=== PATIENT | male | born 1930 | race African-American/Black ===

== ENCOUNTER 2017-05-06 23:45 | Inpatient (IN) ==
[2017-05-07 01:43] LABS: Basophils % 0.2 % (0.0-0.8); Eosinophils # 0.1 10*3/uL (0.0-0.87); Eosinophils % 1.6 % (0.00-10.9); Hematocrit 37.2 VOL% (42.0-52.0); Hemoglobin 12.1 GM/DL (14.0-18.0); Immature Granulocytes % 0.5 %; Immature Granulocytes Absolute 0.03 #; Lymphocytes # 1.3 10*3/uL (1.4-4.0); Mean Corpuscular HGB Conc 32.5 GM/DL (32-36); Mean Corpuscular Hemoglobin 30 PG (27-34); Mean Corpuscular Volume 92.3 FL (87-102); Mean Platelet Volume 11.1 FL (9.6-12.0); Monocytes # 0.6 10*3/uL (0.11-0.8); Monocytes % 10.9 % (1.7-12.7); Neutrophils # 3.6 10*3/uL (1.4-7.4); Neutrophils % 63.8 % (38.7-73.9); Platelet Count 147 T/CUMM (130-400); Red Blood Count 4.03 MC/CUMM (3.8-5.5); Red Cell Distribution Width 13.5 % (9.3-17.3); White Blood Count 5.7 T/CUMM (4-12)
[2017-05-07 01:50] LABS: INR 1.1; PT Patient Result 11.2 SECS
[2017-05-07 02:14] LABS: Alanine Aminotransferase 41 U/L (16-61); Albumin 2.8 G/DL (3.4-5.0); Alkaline Phosphatase 87 U/L (45-117); Aspartate Amino Transferase 28 U/L (0-37); Bilirubin,Total < 0.39 MG/DL (0.2-1.0); Blood Urea Nitrogen 38 MG/DL (7-18); Calcium 8.4 MG/DL (8.5-10.1); Glucose 108 MG/DL (74-106); Osmolality,Calculated 284.7 MOS/KG (273-304); Potassium 4.1 MMOL/L (3.5-5.1); Sodium 138 MMOL/L (136-145); Troponin I Only 0.026 NG/ML (0.00-0.045)
[2017-05-07] MEDS ORDERED: FUROSEMIDE 40 MG/4 ML VIAL IV STA (03:16)
[2017-05-07] MEDS ORDERED: FUROSEMIDE 40 MG/4 ML VIAL ONE (03:32)
[2017-05-07] MEDS ORDERED: ONDANSETRON 4 MG/2 ML VIAL IV PRN (07:02)
[2017-05-07] MEDS ORDERED: DEXTROSE 50% 25 GM/50 ML VIAL IV PRN (07:02)
[2017-05-07] MEDS ORDERED: MORPHINE 2 MG/1 ML SYRINGE IV PRN (07:02)
[2017-05-07] MEDS ORDERED: GLUCAGON 1 MG VIAL IM PRN (07:02)
[2017-05-07 08:09] LABS: Magnesium 2.2 MG/DL (1.8-2.4); Risk Ratio 2.62; VLDL CHOLESTEROL 19.6 MG/DL
[2017-05-07] MEDS: CARVEDILOL 25 MG TABLET PO SCH ×2 (08:22→21:00)
[2017-05-07] MEDS: MULTIVITAMIN (CENTRUM) TABLET PO SCH (08:22)
[2017-05-07] MEDS: DOCUSATE SODIUM 100 MG CAPSULE PO SCH ×2 (08:22→21:01)
[2017-05-07] MEDS: ASPIRIN EC 81 MG TABLET PO SCH (08:22)
[2017-05-07] MEDS: FERROUS SULFATE 325 MG TABLET PO SCH (08:22)
[2017-05-07] MEDS: VALSARTAN 80 MG TABLET PO SCH (08:22)
[2017-05-07] MEDS: MAGNESIUM OXIDE 400 MG TABLET PO SCH (08:23)
[2017-05-07] MEDS: CALCIUM (CARBONATE)/VITAMIN D 500 MG-200 UNIT TABLET PO SCH ×2 (08:23→21:00)
[2017-05-07] MEDS: CYANOCOBALAMIN 500 MCG TABLET PO SCH (08:23)
[2017-05-07] MEDS: PANTOPRAZOLE 40 MG TABLET PO SCH (08:23)
[2017-05-07] MEDS: FUROSEMIDE 40 MG/4 ML VIAL IV SCH ×2 (08:26→16:22)
[2017-05-07] MEDS: SPIRONOLACTONE 25 MG TABLET PO SCH (11:27)
[2017-05-07] MEDS: DIGOXIN 0.25 MG TABLET PO SCH (12:47)
[2017-05-07] MEDS: ALBUTEROL/IPRATROPIUM 3 ML NEB RESP TX SCH ×2 (14:08→20:07)
[2017-05-07] MEDS: RIVAROXABAN 20 MG TABLET PO SCH (16:21)
[2017-05-07] MEDS: BACLOFEN 10 MG TABLET PO SCH ×2 (16:21→21:00)
[2017-05-07] MEDS: INSULIN GLARGINE 100 UNIT/ML SUBCUT SCH (17:41)
[2017-05-07] MEDS: DONEPEZIL 10 MG TABLET PO SCH (21:01)
[2017-05-08] MEDS: ALBUTEROL/IPRATROPIUM 3 ML NEB RESP TX SCH ×4 (00:51→21:13)
[2017-05-08 06:27] LABS: Calcium 8.8 MG/DL (8.5-10.1); Osmolality,Calculated 278.7 MOS/KG (273-304)
[2017-05-08] MEDS: FUROSEMIDE 40 MG/4 ML VIAL IV SCH ×2 (10:03→16:35)
[2017-05-08] MEDS: MULTIVITAMIN (CENTRUM) TABLET PO SCH (10:05)
[2017-05-08] MEDS: VALSARTAN 80 MG TABLET PO SCH (10:05)
[2017-05-08] MEDS: CALCIUM (CARBONATE)/VITAMIN D 500 MG-200 UNIT TABLET PO SCH ×2 (10:05→20:26)
[2017-05-08] MEDS: FERROUS SULFATE 325 MG TABLET PO SCH (10:06)
[2017-05-08] MEDS: CYANOCOBALAMIN 500 MCG TABLET PO SCH (10:06)
[2017-05-08] MEDS: DOCUSATE SODIUM 100 MG CAPSULE PO SCH ×2 (10:06→20:26)
[2017-05-08] MEDS: BACLOFEN 10 MG TABLET PO SCH ×3 (10:07→20:26)
[2017-05-08] MEDS: MAGNESIUM OXIDE 400 MG TABLET PO SCH (10:07)
[2017-05-08] MEDS: ASPIRIN EC 81 MG TABLET PO SCH (10:08)
[2017-05-08] MEDS: CARVEDILOL 25 MG TABLET PO SCH ×2 (10:08→20:26)
[2017-05-08] MEDS: PANTOPRAZOLE 40 MG TABLET PO SCH (10:08)
[2017-05-08] MEDS: SPIRONOLACTONE 25 MG TABLET PO SCH (10:09)
[2017-05-08] MEDS: DIGOXIN 0.25 MG TABLET PO SCH (14:27)
[2017-05-08] MEDS: RIVAROXABAN 20 MG TABLET PO SCH (16:35)
[2017-05-08] MEDS: INSULIN GLARGINE 100 UNIT/ML SUBCUT SCH (17:46)
[2017-05-08] MEDS: DONEPEZIL 10 MG TABLET PO SCH (20:26)
[2017-05-09] MEDS: ALBUTEROL/IPRATROPIUM 3 ML NEB RESP TX SCH ×4 (01:54→19:50)
[2017-05-09] MEDS: ASPIRIN EC 81 MG TABLET PO SCH (09:13)
[2017-05-09] MEDS: MULTIVITAMIN (CENTRUM) TABLET PO SCH (09:13)
[2017-05-09] MEDS: DOCUSATE SODIUM 100 MG CAPSULE PO SCH ×2 (09:13→21:30)
[2017-05-09] MEDS: SPIRONOLACTONE 25 MG TABLET PO SCH (09:13)
[2017-05-09] MEDS: CYANOCOBALAMIN 500 MCG TABLET PO SCH (09:13)
[2017-05-09] MEDS: BACLOFEN 10 MG TABLET PO SCH ×3 (09:13→21:30)
[2017-05-09] MEDS: MAGNESIUM OXIDE 400 MG TABLET PO SCH (09:13)
[2017-05-09] MEDS: CALCIUM (CARBONATE)/VITAMIN D 500 MG-200 UNIT TABLET PO SCH ×2 (09:14→21:30)
[2017-05-09] MEDS: PANTOPRAZOLE 40 MG TABLET PO SCH (09:14)
[2017-05-09] MEDS: VALSARTAN 80 MG TABLET PO SCH (09:14)
[2017-05-09] MEDS: FUROSEMIDE 40 MG/4 ML VIAL IV SCH (09:14)
[2017-05-09] MEDS: CARVEDILOL 25 MG TABLET PO SCH ×2 (09:14→21:30)
[2017-05-09] MEDS: FERROUS SULFATE 325 MG TABLET PO SCH (09:14)
[2017-05-09 11:35] LABS: Calcium 8.7 MG/DL (8.5-10.1); Magnesium 2.3 MG/DL (1.8-2.4); Osmolality,Calculated 277.1 MOS/KG (273-304); Potassium 4.9 MMOL/L (3.5-5.1)
[2017-05-09] MEDS: DIGOXIN 0.25 MG TABLET PO SCH (13:04)
[2017-05-09] MEDS: RIVAROXABAN 20 MG TABLET PO SCH (15:40)
[2017-05-09] MEDS: FUROSEMIDE 40 MG TABLET PO SCH (15:41)
[2017-05-09] MEDS: INSULIN GLARGINE 100 UNIT/ML SUBCUT SCH (17:07)
[2017-05-09] MEDS: DONEPEZIL 10 MG TABLET PO SCH (21:30)
[2017-05-10] MEDS: ALBUTEROL/IPRATROPIUM 3 ML NEB RESP TX SCH ×4 (01:00→19:49)
[2017-05-10 04:57] LABS: Basophils % 0.2 % (0.0-0.8); Eosinophils # 0.1 10*3/uL (0.0-0.87); Eosinophils % 0.9 % (0.00-10.9); Hemoglobin 11.6 GM/DL (14.0-18.0); Immature Granulocytes % 0.8 %; Immature Granulocytes Absolute 0.05 #; Mean Corpuscular HGB Conc 32.2 GM/DL (32-36); Mean Corpuscular Hemoglobin 30 PG (27-34); Mean Corpuscular Volume 91.6 FL (87-102); Mean Platelet Volume 11.4 FL (9.6-12.0); Monocytes # 0.8 10*3/uL (0.11-0.8); Monocytes % 11.8 % (1.7-12.7); Neutrophils # 4.6 10*3/uL (1.4-7.4); Neutrophils % 70.3 % (38.7-73.9); Platelet Count 198 T/CUMM (130-400); Red Blood Count 3.93 MC/CUMM (3.8-5.5); Red Cell Distribution Width 13.5 % (9.3-17.3); White Blood Count 6.5 T/CUMM (4-12)
[2017-05-10 05:41] LABS: Calcium 8.6 MG/DL (8.5-10.1); Osmolality,Calculated 277.8 MOS/KG (273-304); Potassium 4.4 MMOL/L (3.5-5.1)
[2017-05-10] MEDS: FERROUS SULFATE 325 MG TABLET PO SCH (08:11)
[2017-05-10] MEDS: CALCIUM (CARBONATE)/VITAMIN D 500 MG-200 UNIT TABLET PO SCH ×2 (08:12→21:28)
[2017-05-10] MEDS: VALSARTAN 80 MG TABLET PO SCH (08:12)
[2017-05-10] MEDS: PANTOPRAZOLE 40 MG TABLET PO SCH (08:12)
[2017-05-10] MEDS: DOCUSATE SODIUM 100 MG CAPSULE PO SCH ×2 (08:12→21:28)
[2017-05-10] MEDS: CYANOCOBALAMIN 500 MCG TABLET PO SCH (08:13)
[2017-05-10] MEDS: SPIRONOLACTONE 25 MG TABLET PO SCH (08:13)
[2017-05-10] MEDS: CARVEDILOL 25 MG TABLET PO SCH ×2 (08:13→21:28)
[2017-05-10] MEDS: ASPIRIN EC 81 MG TABLET PO SCH (08:13)
[2017-05-10] MEDS: BACLOFEN 10 MG TABLET PO SCH ×3 (08:13→21:28)
[2017-05-10] MEDS: MAGNESIUM OXIDE 400 MG TABLET PO SCH (08:32)
[2017-05-10] MEDS: FUROSEMIDE 40 MG TABLET PO SCH ×2 (08:32→15:40)
[2017-05-10] MEDS: MULTIVITAMIN (CENTRUM) TABLET PO SCH (08:32)
[2017-05-10] MEDS: DIGOXIN 0.25 MG TABLET PO SCH (13:28)
[2017-05-10] MEDS: RIVAROXABAN 20 MG TABLET PO SCH (15:40)
[2017-05-10] MEDS: INSULIN GLARGINE 100 UNIT/ML SUBCUT SCH (17:02)
[2017-05-10] MEDS: DONEPEZIL 10 MG TABLET PO SCH (21:27)
[2017-05-11] MEDS: ALBUTEROL/IPRATROPIUM 3 ML NEB RESP TX SCH ×4 (00:17→20:02)
[2017-05-11] MEDS ORDERED: INSULIN GLARGINE 100 UNIT/ML SUBCUT SCH (09:32)
[2017-05-11] MEDS: CYANOCOBALAMIN 500 MCG TABLET PO SCH (09:37)
[2017-05-11] MEDS: FERROUS SULFATE 325 MG TABLET PO SCH (09:37)
[2017-05-11] MEDS: VALSARTAN 80 MG TABLET PO SCH (09:37)
[2017-05-11] MEDS: BACLOFEN 10 MG TABLET PO SCH ×3 (09:38→21:27)
[2017-05-11] MEDS: SPIRONOLACTONE 25 MG TABLET PO SCH (09:39)
[2017-05-11] MEDS: MAGNESIUM OXIDE 400 MG TABLET PO SCH (09:39)
[2017-05-11] MEDS: FUROSEMIDE 40 MG TABLET PO SCH ×2 (09:39→15:45)
[2017-05-11] MEDS: CALCIUM (CARBONATE)/VITAMIN D 500 MG-200 UNIT TABLET PO SCH ×2 (09:39→21:30)
[2017-05-11] MEDS: PANTOPRAZOLE 40 MG TABLET PO SCH (09:40)
[2017-05-11] MEDS: CARVEDILOL 25 MG TABLET PO SCH ×2 (09:40→21:30)
[2017-05-11] MEDS: MULTIVITAMIN (CENTRUM) TABLET PO SCH (09:40)
[2017-05-11] MEDS: ASPIRIN EC 81 MG TABLET PO SCH (09:41)
[2017-05-11] MEDS: DOCUSATE SODIUM 100 MG CAPSULE PO SCH ×2 (09:41→21:27)
[2017-05-11] MEDS: DIGOXIN 0.25 MG TABLET PO SCH (13:43)
[2017-05-11] MEDS: DOXYCYCLINE HYCLATE 100 MG CAPSULE PO SCH ×2 (14:08→21:27)
[2017-05-11 15:42] LABS: Apearance,Urine CLEAR (Clear); Bacteria,Urine Occasional /HPF (Few); Bilirubin,Urine Negative (Negative); Blood, Urine Small mg/dL (Negative); Glucose,Urine (UA) 50 mg/dL (Negative); Hyaline Casts,Urine 6 /LPF (0-3); Ketones,Urine Negative (Negative); Mucus,Urine Occasional /LPF (Occasional); Nitrite,Urine Negative (Negative); Protein,Urine Negative; RBC,Urine 2 /HPF (0-4); Urine Color Yellow (Yellow); Urine Urobilinogen < 2.0 EU/DL (0.2-1.0); WBC,Urine 4 /HPF (0-6)
[2017-05-11] MEDS: RIVAROXABAN 20 MG TABLET PO SCH (16:27)
[2017-05-11] MEDS: DONEPEZIL 10 MG TABLET PO SCH (21:27)
[2017-05-12] MEDS: ALBUTEROL/IPRATROPIUM 3 ML NEB RESP TX SCH ×2 (00:10→07:04)
[2017-05-12] MEDS: MAGNESIUM OXIDE 400 MG TABLET PO SCH (09:12)
[2017-05-12] MEDS: BACLOFEN 10 MG TABLET PO SCH (09:12)
[2017-05-12] MEDS: MULTIVITAMIN (CENTRUM) TABLET PO SCH (09:13)
[2017-05-12] MEDS: DOXYCYCLINE HYCLATE 100 MG CAPSULE PO SCH (09:13)
[2017-05-12] MEDS: SPIRONOLACTONE 25 MG TABLET PO SCH (09:13)
[2017-05-12] MEDS: DOCUSATE SODIUM 100 MG CAPSULE PO SCH (09:13)
[2017-05-12] MEDS: ASPIRIN EC 81 MG TABLET PO SCH (09:14)
[2017-05-12] MEDS: FERROUS SULFATE 325 MG TABLET PO SCH (09:14)
[2017-05-12] MEDS: CALCIUM (CARBONATE)/VITAMIN D 500 MG-200 UNIT TABLET PO SCH (09:14)
[2017-05-12] MEDS: CARVEDILOL 25 MG TABLET PO SCH (09:14)
[2017-05-12] MEDS: VALSARTAN 80 MG TABLET PO SCH (09:15)
[2017-05-12] MEDS: CYANOCOBALAMIN 500 MCG TABLET PO SCH (09:15)
[2017-05-12] MEDS: FUROSEMIDE 40 MG TABLET PO SCH (09:16)
[2017-05-12] MEDS: PANTOPRAZOLE 40 MG TABLET PO SCH (09:16)
[2017-05-12] MEDS ORDERED: CIPROFLOXACIN 500 MG TABLET PO SCH (09:30)
[2017-05-12 11:57] VITALS: BP 108/56
== END 2017-05-12 13:29 | disposition home health service (06) | DRG 190 ==
LOC: N.ED 23:45 → SUATTDRO 05-07 05:00 → N.EDINP 05-07 05:00 → N.TELEN 05-07 05:32
PROVIDERS: ATTEND Internal Medicine

== ENCOUNTER 2017-10-11 14:16 | Inpatient (IN) ==
[2017-10-11] MEDS ORDERED: guaiFENesin/DM ER 600-30 MG TABLET PO PRN (14:36)
[2017-10-11] MEDS ORDERED: ZALEPLON 5 MG CAPSULE PO PRN (14:36)
[2017-10-11] MEDS ORDERED: DOCUSATE SODIUM 100 MG CAPSULE PO PRN (14:36)
[2017-10-11] MEDS ORDERED: DEXTROSE 50% 25 GM/50 ML VIAL IV PRN (14:36)
[2017-10-11] MEDS ORDERED: GLUCAGON 1 MG VIAL IM PRN (14:36)
[2017-10-11] MEDS ORDERED: ACETAMINOPHEN 325 MG TABLET PO PRN (14:36)
[2017-10-11] MEDS ORDERED: MAGNESIUM SULF RIDER 2 GM in PREMIX 1 EACH IV PRN (14:36)
[2017-10-11] MEDS ORDERED: POTASSIUM CHLORIDE RIDER 10 MEQ in PREMIX 1 EACH IV PRN (14:36)
[2017-10-11] MEDS ORDERED: BISACODYL 5 MG TABLET PO PRN (14:36)
[2017-10-11] MEDS ORDERED: MAGNESIUM SULF RIDER 4 GM in PREMIX 1 EACH IV PRN (14:36)
[2017-10-11] MEDS ORDERED: ONDANSETRON 4 MG/2 ML VIAL IV PRN (14:36)
[2017-10-11] MEDS ORDERED: DIGOXIN 0.125 MG TABLET PO SCH (15:30)
[2017-10-11 17:04] LABS: Basophils % 0.8 % (0.0-0.8); Eosinophils # 0.2 10*3/uL (0.0-0.87); Eosinophils % 3.4 % (0.00-10.9); Hematocrit 39.4 VOL% (42.0-52.0); Hemoglobin 12.4 GM/DL (14.0-18.0); Immature Granulocytes % 0.4 %; Immature Granulocytes Absolute 0.02 #; Lymphocytes # 1.2 10*3/uL (1.4-4.0); Lymphocytes % 23.6 % (21.2-54.2); Mean Corpuscular HGB Conc 31.5 GM/DL (32-36); Mean Corpuscular Hemoglobin 30 PG (27-34); Mean Corpuscular Volume 95.2 FL (87-102); Mean Platelet Volume 11.3 FL (9.6-12.0); Monocytes # 0.5 10*3/uL (0.11-0.8); Monocytes % 10.4 % (1.7-12.7); Neutrophils # 3.1 10*3/uL (1.4-7.4); Neutrophils % 61.4 % (38.7-73.9); Platelet Count 156 T/CUMM (130-400); Red Blood Count 4.14 MC/CUMM (3.8-5.5); Red Cell Distribution Width 13.2 % (9.3-17.3)
[2017-10-11] MEDS: INSULIN REGULAR 100 UNIT/ML SUBCUT SCH ×2 (17:06→21:19)
[2017-10-11 17:21] LABS: Calcium 8.9 MG/DL (8.5-10.1); Osmolality,Calculated 280.8 MOS/KG (273-304); Potassium 4.4 MMOL/L (3.5-5.1)
[2017-10-11 17:35] LABS: Thyroid Stimulating Hormone 2.68 uIU/ml (0.358-3.74)
[2017-10-11] MEDS: ASPIRIN EC 81 MG TABLET PO SCH (20:06)
[2017-10-11] MEDS: FERROUS SULFATE 325 MG TABLET PO SCH (20:07)
[2017-10-11] MEDS: CYANOCOBALAMIN 500 MCG TABLET PO SCH (20:08)
[2017-10-11] MEDS: FUROSEMIDE 40 MG/4 ML VIAL IV SCH ×2 (20:37→21:20)
[2017-10-11] MEDS ORDERED: RIVAROXABAN 20 MG TABLET PO ONE (21:00)
[2017-10-11] MEDS: DONEPEZIL 10 MG TABLET PO SCH (21:20)
[2017-10-11] MEDS: CARVEDILOL 25 MG TABLET PO SCH (21:20)
[2017-10-11] MEDS: CALCIUM (CARBONATE)/VITAMIN D 500 MG-200 UNIT TABLET PO SCH (21:20)
[2017-10-11] MEDS: SPIRONOLACTONE 25 MG TABLET PO SCH (21:20)
[2017-10-12 04:57] LABS: Basophils % 0.2 % (0.0-0.8); Eosinophils # 0.1 10*3/uL (0.0-0.87); Eosinophils % 3.1 % (0.00-10.9); Hematocrit 38.1 VOL% (42.0-52.0); Hemoglobin 12.6 GM/DL (14.0-18.0); Immature Granulocytes % 0.2 %; Immature Granulocytes Absolute 0.01 #; Lymphocytes # 1.2 10*3/uL (1.4-4.0); Lymphocytes % 25.8 % (21.2-54.2); Mean Corpuscular HGB Conc 33.1 GM/DL (32-36); Mean Corpuscular Hemoglobin 30 PG (27-34); Mean Platelet Volume 11.8 FL (9.6-12.0); Monocytes # 0.5 10*3/uL (0.11-0.8); Monocytes % 11.6 % (1.7-12.7); Neutrophils # 2.7 10*3/uL (1.4-7.4); Neutrophils % 59.1 % (38.7-73.9); Platelet Count 168 T/CUMM (130-400); Red Blood Count 4.14 MC/CUMM (3.8-5.5); Red Cell Distribution Width 13.2 % (9.3-17.3); White Blood Count 4.6 T/CUMM (4-12)
[2017-10-12 05:18] LABS: Calcium 8.6 MG/DL (8.5-10.1); Osmolality,Calculated 285.4 MOS/KG (273-304)
[2017-10-12] MEDS: INSULIN REGULAR 100 UNIT/ML SUBCUT SCH ×4 (08:43→21:31)
[2017-10-12] MEDS: CYANOCOBALAMIN 500 MCG TABLET PO SCH (08:44)
[2017-10-12] MEDS: MULTIVITAMIN (CENTRUM) TABLET PO SCH (08:44)
[2017-10-12] MEDS: SPIRONOLACTONE 25 MG TABLET PO SCH (08:44)
[2017-10-12] MEDS: ASPIRIN EC 81 MG TABLET PO SCH (08:44)
[2017-10-12] MEDS: FERROUS SULFATE 325 MG TABLET PO SCH (08:44)
[2017-10-12] MEDS: CALCIUM (CARBONATE)/VITAMIN D 500 MG-200 UNIT TABLET PO SCH ×2 (08:44→21:25)
[2017-10-12] MEDS: VALSARTAN 80 MG TABLET PO SCH (08:44)
[2017-10-12] MEDS: MAGNESIUM OXIDE 400 MG TABLET PO SCH (08:45)
[2017-10-12] MEDS: PANTOPRAZOLE 40 MG TABLET PO SCH (08:45)
[2017-10-12] MEDS: DIGOXIN 0.125 MG TABLET PO SCH (08:45)
[2017-10-12] MEDS: FUROSEMIDE 40 MG/4 ML VIAL IV SCH ×2 (08:45→21:25)
[2017-10-12] MEDS: CARVEDILOL 25 MG TABLET PO SCH ×2 (08:45→17:05)
[2017-10-12] MEDS: methylPREDNISolone SOD SUC 40 MG/1 ML VIAL IV SCH ×2 (12:00→23:57)
[2017-10-12] MEDS: CEFEPIME 1,000 MG in SYRINGE 1 EACH IV SCH (12:05)
[2017-10-12] MEDS: ALBUTEROL/IPRATROPIUM 3 ML NEB RESP TX SCH ×2 (14:45→18:58)
[2017-10-12] MEDS: RIVAROXABAN 20 MG TABLET PO SCH (17:05)
[2017-10-12] MEDS: DONEPEZIL 10 MG TABLET PO SCH (21:25)
[2017-10-13] MEDS: ALBUTEROL/IPRATROPIUM 3 ML NEB RESP TX SCH ×4 (00:23→19:17)
[2017-10-13 05:47] LABS: Eosinophils % 0.2 % (0.00-10.9); Hematocrit 41.6 VOL% (42.0-52.0); Hemoglobin 13.1 GM/DL (14.0-18.0); Immature Granulocytes % 0.2 %; Immature Granulocytes Absolute 0.01 #; Lymphocytes # 0.6 10*3/uL (1.4-4.0); Lymphocytes % 10.1 % (21.2-54.2); Mean Corpuscular HGB Conc 31.5 GM/DL (32-36); Mean Corpuscular Hemoglobin 29 PG (27-34); Mean Corpuscular Volume 92.9 FL (87-102); Mean Platelet Volume 11.1 FL (9.6-12.0); Monocytes # 0.1 10*3/uL (0.11-0.8); Monocytes % 2.2 % (1.7-12.7); Neutrophils # 4.8 10*3/uL (1.4-7.4); Neutrophils % 87.3 % (38.7-73.9); Platelet Count 181 T/CUMM (130-400); Red Blood Count 4.48 MC/CUMM (3.8-5.5); Red Cell Distribution Width 13.1 % (9.3-17.3); White Blood Count 5.5 T/CUMM (4-12)
[2017-10-13 06:15] LABS: Calcium 9.3 MG/DL (8.5-10.1); Osmolality,Calculated 285.4 MOS/KG (273-304)
[2017-10-13] MEDS: INSULIN REGULAR 100 UNIT/ML SUBCUT SCH ×4 (07:44→22:21)
[2017-10-13] MEDS: DIGOXIN 0.125 MG TABLET PO SCH (08:45)
[2017-10-13] MEDS: MAGNESIUM OXIDE 400 MG TABLET PO SCH (08:45)
[2017-10-13] MEDS: MULTIVITAMIN (CENTRUM) TABLET PO SCH (08:45)
[2017-10-13] MEDS: SPIRONOLACTONE 25 MG TABLET PO SCH (08:45)
[2017-10-13] MEDS: CYANOCOBALAMIN 500 MCG TABLET PO SCH (08:45)
[2017-10-13] MEDS: CALCIUM (CARBONATE)/VITAMIN D 500 MG-200 UNIT TABLET PO SCH ×2 (08:46→21:36)
[2017-10-13] MEDS: FERROUS SULFATE 325 MG TABLET PO SCH (08:46)
[2017-10-13] MEDS: PANTOPRAZOLE 40 MG TABLET PO SCH (08:46)
[2017-10-13] MEDS: CARVEDILOL 25 MG TABLET PO SCH ×2 (08:46→16:38)
[2017-10-13] MEDS: VALSARTAN 80 MG TABLET PO SCH (08:46)
[2017-10-13] MEDS: ASPIRIN EC 81 MG TABLET PO SCH (08:46)
[2017-10-13] MEDS: FUROSEMIDE 40 MG/4 ML VIAL IV SCH ×2 (08:47→21:36)
[2017-10-13] MEDS: methylPREDNISolone SOD SUC 40 MG/1 ML VIAL IV SCH (12:18)
[2017-10-13] MEDS: CEFEPIME 1,000 MG in SYRINGE 1 EACH IV SCH (12:43)
[2017-10-13] MEDS: RIVAROXABAN 20 MG TABLET PO SCH (16:38)
[2017-10-13] MEDS: DONEPEZIL 10 MG TABLET PO SCH (21:36)
[2017-10-14] MEDS: ALBUTEROL/IPRATROPIUM 3 ML NEB RESP TX SCH ×2 (00:25→07:00)
[2017-10-14] MEDS: methylPREDNISolone SOD SUC 40 MG/1 ML VIAL IV SCH (00:40)
[2017-10-14 05:21] LABS: Basophils % 0.1 % (0.0-0.8); Hematocrit 38.4 VOL% (42.0-52.0); Hemoglobin 12.5 GM/DL (14.0-18.0); Immature Granulocytes % 0.2 %; Immature Granulocytes Absolute 0.02 #; Lymphocytes # 1.1 10*3/uL (1.4-4.0); Lymphocytes % 13.1 % (21.2-54.2); Mean Corpuscular HGB Conc 32.6 GM/DL (32-36); Mean Corpuscular Hemoglobin 30 PG (27-34); Mean Corpuscular Volume 91.2 FL (87-102); Mean Platelet Volume 11.7 FL (9.6-12.0); Monocytes # 0.9 10*3/uL (0.11-0.8); Monocytes % 10.7 % (1.7-12.7); Neutrophils # 6.4 10*3/uL (1.4-7.4); Neutrophils % 75.9 % (38.7-73.9); Platelet Count 184 T/CUMM (130-400); Red Blood Count 4.21 MC/CUMM (3.8-5.5); Red Cell Distribution Width 13.2 % (9.3-17.3); White Blood Count 8.4 T/CUMM (4-12)
[2017-10-14 06:35] LABS: Calcium 8.8 MG/DL (8.5-10.1); Osmolality,Calculated 284.4 MOS/KG (273-304); Potassium 3.9 MMOL/L (3.5-5.1)
[2017-10-14 07:44] VITALS: BP 124/71
[2017-10-14] MEDS: INSULIN REGULAR 100 UNIT/ML SUBCUT SCH ×2 (07:49→12:01)
[2017-10-14] MEDS: ASPIRIN EC 81 MG TABLET PO SCH (08:43)
[2017-10-14] MEDS: CARVEDILOL 25 MG TABLET PO SCH (08:43)
[2017-10-14] MEDS: CYANOCOBALAMIN 500 MCG TABLET PO SCH (08:43)
[2017-10-14] MEDS: FERROUS SULFATE 325 MG TABLET PO SCH (08:44)
[2017-10-14] MEDS: VALSARTAN 80 MG TABLET PO SCH (08:44)
[2017-10-14] MEDS: SPIRONOLACTONE 25 MG TABLET PO SCH (08:44)
[2017-10-14] MEDS: CALCIUM (CARBONATE)/VITAMIN D 500 MG-200 UNIT TABLET PO SCH (08:44)
[2017-10-14] MEDS: PANTOPRAZOLE 40 MG TABLET PO SCH (08:45)
[2017-10-14] MEDS: DIGOXIN 0.125 MG TABLET PO SCH (08:45)
[2017-10-14] MEDS: MULTIVITAMIN (CENTRUM) TABLET PO SCH (08:45)
[2017-10-14] MEDS: MAGNESIUM OXIDE 400 MG TABLET PO SCH (08:45)
[2017-10-14] MEDS ORDERED: CEFDINIR 300 MG CAPSULE PO SCH (09:00)
[2017-10-14] MEDS ORDERED: predniSONE 20 MG TABLET PO SCH (09:00)
[2017-10-14] MEDS ORDERED: FUROSEMIDE 80 MG TABLET PO SCH (16:00)
== END 2017-10-14 14:08 | disposition home or self-care (01) | DRG 292 ==
LOC: N.2W 16:06 → N.TELES 18:18
PROVIDERS: ADMIT Internal Medicine Clinical Cardiac Electrophysiology; ATTEND Internal Medicine Clinical Cardiac Electrophysiology

== ENCOUNTER 2017-11-19 10:45 | Inpatient (IN) ==
[2017-11-22 13:10] VITALS: BP 113/58
== END 2017-11-22 15:45 | disposition home health service (06) | DRG 682 ==
LOC: N.ED 10:45 → N.EDINP 13:46 → N.5E 14:56
PROVIDERS: ADMIT Hospitalist; ATTEND Hospitalist

== ENCOUNTER 2017-12-15 13:10 | Inpatient (IN) ==
[2017-12-15] MEDS ORDERED: ALBUTEROL 2.5 MG/3 ML NEB RESP TX SCH (15:00)
[2017-12-15 15:03] LABS: Basophils % 0.4 % (0.0-0.8); Eosinophils # 0.1 10*3/uL (0.0-0.87); Eosinophils % 1.9 % (0.00-10.9); Hematocrit 38.8 VOL% (42.0-52.0); Hemoglobin 12.3 GM/DL (14.0-18.0); Immature Granulocytes % 0.6 %; Immature Granulocytes Absolute 0.03 #; Lymphocytes # 0.4 10*3/uL (1.4-4.0); Mean Corpuscular HGB Conc 31.7 GM/DL (32-36); Mean Corpuscular Hemoglobin 30 PG (27-34); Mean Corpuscular Volume 94.6 FL (87-102); Mean Platelet Volume 10.5 FL (9.6-12.0); Monocytes # 0.7 10*3/uL (0.11-0.8); Monocytes % 13.5 % (1.7-12.7); Neutrophils # 3.6 10*3/uL (1.4-7.4); Neutrophils % 74.6 % (38.7-73.9); Platelet Count 225 T/CUMM (130-400); Red Cell Distribution Width 14.2 % (9.3-17.3); White Blood Count 4.8 T/CUMM (4-12)
[2017-12-15 15:13] LABS: INR 1.2; PT Patient Result 12.2 SECS; Partial Thromboplastin Time 32.4 SECS (0-40)
[2017-12-15 15:28] LABS: Alanine Aminotransferase 37 U/L (16-61); Alkaline Phosphatase 114 U/L (45-117); Aspartate Amino Transferase 21 U/L (0-37); Bilirubin,Total < 0.39 MG/DL (0.2-1.0); Blood Urea Nitrogen 28 MG/DL (7-18); Glucose 168 MG/DL (74-106); Osmolality,Calculated 279.1 MOS/KG (273-304); Potassium 4.7 MMOL/L (3.5-5.1); Sodium 135 MMOL/L (136-145); Total Protein 7.6 G/DL (6.4-8.3)
[2017-12-15 16:24] LABS: Apearance,Urine Slightly Hazy (Clear); Bilirubin,Urine Negative (Negative); Blood, Urine Small mg/dL (Negative); Glucose,Urine (UA) 50 mg/dL (Negative); Hyaline Casts,Urine 9 /LPF (0-3); Ketones,Urine Negative (Negative); Mucus,Urine Occasional /LPF (Occasional); Nitrite,Urine Negative (Negative); Protein,Urine 100 MG/DL; RBC,Urine 4 /HPF (0-4); Urine Color Yellow (Yellow); Urine Specific Gravity 1.017 (1.001-1.035); Urine Urobilinogen < 2.0 EU/DL (0.2-1.0); WBC,Urine 1 /HPF (0-6)
[2017-12-15] MEDS ORDERED: DEXTROSE 50% 25 GM/50 ML VIAL IV PRN (19:15)
[2017-12-15] MEDS ORDERED: ONDANSETRON 4 MG/2 ML VIAL IV PRN (19:15)
[2017-12-15] MEDS ORDERED: ACETAMINOPHEN 325 MG TABLET PO PRN ×2 (19:15→19:21)
[2017-12-15] MEDS ORDERED: GLUCAGON 1 MG VIAL IM PRN (19:15)
[2017-12-15] MEDS ORDERED: ACETAMINOPHEN 500 MG TABLET PO PRN (21:00)
[2017-12-15] MEDS: INSULIN GLARGINE 100 UNIT/ML SUBCUT SCH (22:10)
[2017-12-15] MEDS: DONEPEZIL 10 MG TABLET PO SCH (22:10)
[2017-12-15] MEDS: POLYCARBOPHIL 625 MG TABLET PO SCH (22:10)
[2017-12-15] MEDS: CARVEDILOL 3.125 MG TABLET PO SCH (22:10)
[2017-12-15] MEDS: INSULIN REGULAR 100 UNIT/ML SUBCUT SCH (22:11)
[2017-12-16] MEDS: ALBUTEROL 0.63 MG/3 ML NEB RESP TX SCH ×2 (00:44→07:45)
[2017-12-16 04:15] LABS: Basophils % 0.3 % (0.0-0.8); Eosinophils # 0.1 10*3/uL (0.0-0.87); Hematocrit 34.9 VOL% (42.0-52.0); Hemoglobin 11.1 GM/DL (14.0-18.0); Immature Granulocytes % 0.6 %; Immature Granulocytes Absolute 0.02 #; Lymphocytes # 0.7 10*3/uL (1.4-4.0); Lymphocytes % 19.8 % (21.2-54.2); Mean Corpuscular HGB Conc 31.8 GM/DL (32-36); Mean Corpuscular Hemoglobin 29 PG (27-34); Mean Corpuscular Volume 92.6 FL (87-102); Mean Platelet Volume 11.8 FL (9.6-12.0); Monocytes # 0.6 10*3/uL (0.11-0.8); Monocytes % 16.3 % (1.7-12.7); Neutrophils # 2.1 10*3/uL (1.4-7.4); Platelet Count 210 T/CUMM (130-400); Red Blood Count 3.77 MC/CUMM (3.8-5.5); Red Cell Distribution Width 14.3 % (9.3-17.3); White Blood Count 3.5 T/CUMM (4-12)
[2017-12-16 04:53] LABS: Eosinophils 7 % (0-10); Hypochromasia 1+; Lymphocytes 13 % (20-55); Ovalocytes Slight; Platelet Estimate Adequate; Segmented Neutrophils 63 % (50-85); Total Cells Counted 100
[2017-12-16 04:59] LABS: Calcium 8.8 MG/DL (8.5-10.1); Osmolality,Calculated 282.7 MOS/KG (273-304); Potassium 4.4 MMOL/L (3.5-5.1)
[2017-12-16] MEDS ORDERED: ALBUTEROL 0.63 MG/3 ML NEB RESP TX PRN (08:03)
[2017-12-16] MEDS: INSULIN REGULAR 100 UNIT/ML SUBCUT SCH ×4 (08:31→21:18)
[2017-12-16] MEDS: methylPREDNISolone SOD SUC 40 MG/1 ML VIAL IV SCH ×2 (09:20→21:17)
[2017-12-16] MEDS: FUROSEMIDE 40 MG/4 ML VIAL IV SCH (09:22)
[2017-12-16] MEDS: cefTRIAXone 1,000 MG in SYRINGE 1 EACH IV SCH (09:23)
[2017-12-16] MEDS: SPIRONOLACTONE 25 MG TABLET PO SCH (09:29)
[2017-12-16] MEDS: ASPIRIN EC 81 MG TABLET PO SCH (09:30)
[2017-12-16] MEDS: FERROUS SULFATE 325 MG TABLET PO SCH (09:30)
[2017-12-16] MEDS: POLYCARBOPHIL 625 MG TABLET PO SCH ×2 (09:30→21:17)
[2017-12-16] MEDS: CARVEDILOL 3.125 MG TABLET PO SCH ×2 (09:30→21:18)
[2017-12-16] MEDS: CYANOCOBALAMIN 500 MCG TABLET PO SCH (09:30)
[2017-12-16] MEDS: MAGNESIUM OXIDE 400 MG TABLET PO SCH (09:30)
[2017-12-16] MEDS: PANTOPRAZOLE 40 MG TABLET PO SCH (09:30)
[2017-12-16] MEDS: SACUBITRIL/VALSARTAN 49-51 MG TABLET PO SCH ×2 (12:50→21:18)
[2017-12-16] MEDS: DIGOXIN 0.125 MG TABLET PO SCH (12:50)
[2017-12-16] MEDS: ALBUTEROL/IPRATROPIUM 3 ML NEB RESP TX SCH ×2 (14:00→19:06)
[2017-12-16] MEDS: RIVAROXABAN 20 MG TABLET PO SCH (16:45)
[2017-12-16] MEDS: INSULIN GLARGINE 100 UNIT/ML SUBCUT SCH (21:18)
[2017-12-16] MEDS: DONEPEZIL 10 MG TABLET PO SCH (21:18)
[2017-12-17] MEDS: ALBUTEROL/IPRATROPIUM 3 ML NEB RESP TX SCH ×4 (00:23→20:25)
[2017-12-17 04:36] LABS: Basophils % 0.3 % (0.0-0.8); Hematocrit 36.6 VOL% (42.0-52.0); Hemoglobin 11.5 GM/DL (14.0-18.0); Immature Granulocytes % 0.6 %; Immature Granulocytes Absolute 0.02 #; Lymphocytes # 0.5 10*3/uL (1.4-4.0); Lymphocytes % 14.8 % (21.2-54.2); Mean Corpuscular HGB Conc 31.4 GM/DL (32-36); Mean Corpuscular Hemoglobin 30 PG (27-34); Mean Corpuscular Volume 94.1 FL (87-102); Mean Platelet Volume 11.8 FL (9.6-12.0); Monocytes # 0.3 10*3/uL (0.11-0.8); Monocytes % 8.1 % (1.7-12.7); Neutrophils # 2.6 10*3/uL (1.4-7.4); Neutrophils % 76.2 % (38.7-73.9); Platelet Count 241 T/CUMM (130-400); Red Blood Count 3.89 MC/CUMM (3.8-5.5); White Blood Count 3.4 T/CUMM (4-12)
[2017-12-17 04:50] LABS: Calcium 8.8 MG/DL (8.5-10.1); Osmolality,Calculated 280.7 MOS/KG (273-304); Potassium 4.6 MMOL/L (3.5-5.1)
[2017-12-17] MEDS: CARVEDILOL 3.125 MG TABLET PO SCH ×3 (09:30→21:18)
[2017-12-17] MEDS: POLYCARBOPHIL 625 MG TABLET PO SCH ×2 (09:51→21:17)
[2017-12-17] MEDS: MAGNESIUM OXIDE 400 MG TABLET PO SCH (09:52)
[2017-12-17] MEDS: FERROUS SULFATE 325 MG TABLET PO SCH (09:52)
[2017-12-17] MEDS: SACUBITRIL/VALSARTAN 49-51 MG TABLET PO SCH ×2 (09:52→21:18)
[2017-12-17] MEDS: INSULIN REGULAR 100 UNIT/ML SUBCUT SCH ×4 (09:53→21:18)
[2017-12-17] MEDS: CYANOCOBALAMIN 500 MCG TABLET PO SCH (09:53)
[2017-12-17] MEDS: SPIRONOLACTONE 25 MG TABLET PO SCH (09:53)
[2017-12-17] MEDS: ASPIRIN EC 81 MG TABLET PO SCH (09:53)
[2017-12-17] MEDS: FUROSEMIDE 40 MG/4 ML VIAL IV SCH (09:53)
[2017-12-17] MEDS: PANTOPRAZOLE 40 MG TABLET PO SCH (09:53)
[2017-12-17] MEDS: cefTRIAXone 1,000 MG in SYRINGE 1 EACH IV SCH (09:56)
[2017-12-17] MEDS: methylPREDNISolone SOD SUC 40 MG/1 ML VIAL IV SCH (10:03)
[2017-12-17] MEDS: DIGOXIN 0.125 MG TABLET PO SCH (13:21)
[2017-12-17] MEDS: RIVAROXABAN 20 MG TABLET PO SCH (17:40)
[2017-12-17] MEDS: DONEPEZIL 10 MG TABLET PO SCH (21:17)
[2017-12-17] MEDS: INSULIN GLARGINE 100 UNIT/ML SUBCUT SCH (21:18)
[2017-12-18] MEDS: ALBUTEROL/IPRATROPIUM 3 ML NEB RESP TX SCH ×4 (01:42→19:42)
[2017-12-18] MEDS: FERROUS SULFATE 325 MG TABLET PO SCH (09:47)
[2017-12-18] MEDS: ASPIRIN EC 81 MG TABLET PO SCH (09:47)
[2017-12-18] MEDS: CYANOCOBALAMIN 500 MCG TABLET PO SCH (09:47)
[2017-12-18] MEDS: POLYCARBOPHIL 625 MG TABLET PO SCH ×2 (09:47→21:19)
[2017-12-18] MEDS: MAGNESIUM OXIDE 400 MG TABLET PO SCH (09:48)
[2017-12-18] MEDS: PANTOPRAZOLE 40 MG TABLET PO SCH (09:48)
[2017-12-18] MEDS: SACUBITRIL/VALSARTAN 49-51 MG TABLET PO SCH ×2 (09:48→21:19)
[2017-12-18] MEDS: methylPREDNISolone SOD SUC 40 MG/1 ML VIAL IV SCH (09:48)
[2017-12-18] MEDS: cefTRIAXone 1,000 MG in SYRINGE 1 EACH IV SCH (09:51)
[2017-12-18] MEDS: INSULIN REGULAR 100 UNIT/ML SUBCUT SCH ×4 (09:55→21:19)
[2017-12-18] MEDS: FUROSEMIDE 40 MG/4 ML VIAL IV SCH (09:55)
[2017-12-18] MEDS: SPIRONOLACTONE 25 MG TABLET PO SCH (09:56)
[2017-12-18] MEDS: CARVEDILOL 3.125 MG TABLET PO SCH ×2 (09:56→21:19)
[2017-12-18 12:22] LABS: Calcium 8.2 MG/DL (8.5-10.1); Potassium 4.1 MMOL/L (3.5-5.1)
[2017-12-18] MEDS: DIGOXIN 0.125 MG TABLET PO SCH (13:01)
[2017-12-18] MEDS: RIVAROXABAN 20 MG TABLET PO SCH (17:00)
[2017-12-18] MEDS: DONEPEZIL 10 MG TABLET PO SCH (21:18)
[2017-12-18] MEDS: INSULIN GLARGINE 100 UNIT/ML SUBCUT SCH (21:19)
[2017-12-19] MEDS: ALBUTEROL/IPRATROPIUM 3 ML NEB RESP TX SCH ×2 (01:06→08:02)
[2017-12-19 05:37] LABS: Calcium 8.6 MG/DL (8.5-10.1); Osmolality,Calculated 284.3 MOS/KG (273-304); Potassium 4.2 MMOL/L (3.5-5.1)
[2017-12-19] MEDS ORDERED: FUROSEMIDE 40 MG TABLET PO SCH (09:00)
[2017-12-19] MEDS ORDERED: predniSONE 20 MG TABLET PO SCH (09:00)
[2017-12-19] MEDS: cefTRIAXone 1,000 MG in SYRINGE 1 EACH IV SCH (10:03)
[2017-12-19] MEDS: SACUBITRIL/VALSARTAN 49-51 MG TABLET PO SCH (10:04)
[2017-12-19] MEDS: MAGNESIUM OXIDE 400 MG TABLET PO SCH (10:05)
[2017-12-19] MEDS: POLYCARBOPHIL 625 MG TABLET PO SCH (10:06)
[2017-12-19] MEDS: FERROUS SULFATE 325 MG TABLET PO SCH (10:06)
[2017-12-19] MEDS: PANTOPRAZOLE 40 MG TABLET PO SCH (10:07)
[2017-12-19] MEDS: CYANOCOBALAMIN 500 MCG TABLET PO SCH (10:08)
[2017-12-19] MEDS: CARVEDILOL 3.125 MG TABLET PO SCH (10:08)
[2017-12-19] MEDS: SPIRONOLACTONE 25 MG TABLET PO SCH (10:08)
[2017-12-19] MEDS: ASPIRIN EC 81 MG TABLET PO SCH (10:10)
[2017-12-19 12:20] VITALS: BP 117/76
== END 2017-12-19 13:33 | disposition home health service (06) | DRG 291 ==
LOC: N.ED 13:10 → N.EDINP 19:15 → SUATTDRO 19:15 → N.TELES 20:30
PROVIDERS: ADMIT Internal Medicine; ATTEND Internal Medicine

== ENCOUNTER 2018-01-22 20:41 | Observation (INO) ==
[2018-01-22] MEDS ORDERED: KETOROLAC 30 MG/1 ML VIAL IV STA (21:16)
[2018-01-22 21:42] LABS: Basophils % 0.3 % (0.0-0.8); Eosinophils # 0.1 10*3/uL (0.0-0.87); Eosinophils % 1.7 % (0.00-10.9); Hematocrit 38.2 VOL% (42.0-52.0); Hemoglobin 12.1 GM/DL (14.0-18.0); Immature Granulocytes % 0.3 %; Immature Granulocytes Absolute 0.02 #; Lymphocytes # 1.3 10*3/uL (1.4-4.0); Lymphocytes % 21.8 % (21.2-54.2); Mean Corpuscular HGB Conc 31.7 GM/DL (32-36); Mean Corpuscular Hemoglobin 30 PG (27-34); Mean Corpuscular Volume 94.6 FL (87-102); Monocytes # 0.5 10*3/uL (0.11-0.8); Monocytes % 8.7 % (1.7-12.7); Neutrophils # 3.9 10*3/uL (1.4-7.4); Neutrophils % 67.2 % (38.7-73.9); Platelet Count 217 T/CUMM (130-400); Red Blood Count 4.04 MC/CUMM (3.8-5.5); Red Cell Distribution Width 13.7 % (9.3-17.3); White Blood Count 5.7 T/CUMM (4-12)
[2018-01-22 22:55] LABS: Alanine Aminotransferase 30 U/L (16-61); Albumin 3.2 G/DL (3.4-5.0); Alkaline Phosphatase 108 U/L (45-117); Aspartate Amino Transferase 20 U/L (0-37); Bilirubin,Total < 0.39 MG/DL (0.2-1.0); Blood Urea Nitrogen 37 MG/DL (7-18); Calcium 8.8 MG/DL (8.5-10.1); Glucose 182 MG/DL (74-106); Osmolality,Calculated 275.7 MOS/KG (273-304); Sodium 131 MMOL/L (136-145); Total Protein 7.1 G/DL (6.4-8.3)
[2018-01-22 22:57] LABS: Potassium 6.6 MMOL/L (3.5-5.1)
[2018-01-22] MEDS ORDERED: SODIUM BICARBONATE 50 MEQ/50 ML VIAL IV STA ×2 (23:05)
[2018-01-22] MEDS ORDERED: INSULIN REGULAR 100 UNIT/ML IV STA (23:05)
[2018-01-22] MEDS ORDERED: DEXTROSE 50% 25 GM/50 ML VIAL IV STA (23:06)
[2018-01-22] MEDS ORDERED: CALCIUM CHLORIDE 1,000 MG/10 ML SYRINGE IV STA (23:06)
[2018-01-22] MEDS ORDERED: DEXTROSE 50% 25 GM/50 ML SYRINGE IV ONE (23:24)
[2018-01-22] MEDS ORDERED: SODIUM BICARBONATE 50 MEQ/50 ML SYRINGE IV ONE (23:24)
[2018-01-22] MEDS ORDERED: SODIUM POLYSTYRENE SULFATE 15 GM/60 ML BOTTLE PO STA (23:46)
[2018-01-23 05:42] LABS: Calcium 9.2 MG/DL (8.5-10.1); Potassium 5.8 MMOL/L (3.5-5.1)
[2018-01-23] MEDS ORDERED: SODIUM POLYSTYRENE SULFATE 15 GM/60 ML BOTTLE PO STA (07:49)
[2018-01-23] MEDS ORDERED: ENOXAPARIN 40 MG/0.4 ML SYRINGE SUBCUT SCH (09:00)
[2018-01-23] MEDS ORDERED: ACETAMINOPHEN 500 MG TABLET PO PRN (11:00)
[2018-01-23] MEDS ORDERED: ALBUTEROL/IPRATROPIUM 3 ML NEB RESP TX SCH (13:00)
[2018-01-23] MEDS ORDERED: ALBUTEROL 0.63 MG/3 ML NEB RESP TX SCH (15:00)
[2018-01-23] MEDS ORDERED: FUROSEMIDE 40 MG TABLET PO SCH (16:00)
[2018-01-23 16:07] VITALS: BP 119/52
[2018-01-23] MEDS ORDERED: RIVAROXABAN 20 MG TABLET PO SCH (16:30)
[2018-01-23] MEDS ORDERED: INSULIN GLARGINE 100 UNIT/ML SUBCUT SCH (21:00)
[2018-01-23] MEDS ORDERED: CARVEDILOL 3.125 MG TABLET PO SCH (21:00)
[2018-01-23] MEDS ORDERED: DONEPEZIL 10 MG TABLET PO SCH (21:00)
[2018-01-23] MEDS ORDERED: POLYCARBOPHIL 625 MG TABLET PO SCH (21:00)
[2018-01-23] MEDS ORDERED: SACUBITRIL/VALSARTAN 49-51 MG TABLET PO SCH (21:00)
[2018-01-24] MEDS ORDERED: CYANOCOBALAMIN 500 MCG TABLET PO SCH (09:00)
[2018-01-24] MEDS ORDERED: ASPIRIN EC 81 MG TABLET PO SCH (09:00)
[2018-01-24] MEDS ORDERED: FERROUS SULFATE 325 MG TABLET PO SCH (09:00)
[2018-01-24] MEDS ORDERED: MULTIVITAMIN (CENTRUM) TABLET PO SCH (09:00)
[2018-01-24] MEDS ORDERED: MAGNESIUM OXIDE 400 MG TABLET PO SCH (09:00)
[2018-01-24] MEDS ORDERED: SPIRONOLACTONE 25 MG TABLET PO SCH (09:00)
[2018-01-24] MEDS ORDERED: predniSONE 20 MG TABLET PO SCH (09:00)
[2018-01-24] MEDS ORDERED: DIGOXIN 0.125 MG TABLET PO SCH (13:00)
[2018-01-24] MEDS ORDERED: RIVAROXABAN 20 MG TABLET PO SCH (17:00)
== END 2018-01-23 18:36 | disposition home or self-care (01) ==
LOC: N.ED 20:41 → N.EDINP 20:41 → N.TELEN 01-23 00:40

== ENCOUNTER 2019-08-01 15:59 | Inpatient (IN) ==
[2019-08-01 16:54] LABS: Basophils % 0.4 % (0.0-0.8); Eosinophils # 0.2 10*3/uL (0.0-0.87); Eosinophils % 3.6 % (0.00-10.9); Hematocrit 38.9 VOL% (42.0-52.0); Hemoglobin 12.1 GM/DL (14.0-18.0); Immature Granulocytes % 0.4 %; Immature Granulocytes Absolute 0.02 #; Lymphocytes # 1.2 10*3/uL (1.4-4.0); Lymphocytes % 24.8 % (21.2-54.2); Mean Corpuscular HGB Conc 31.1 GM/DL (32-36); Mean Corpuscular Volume 94.4 FL (87-102); Mean Platelet Volume 10.7 FL (9.6-12.0); Monocytes % 10.6 % (1.7-12.7); Neutrophils % 60.2 % (38.7-73.9); Platelet Count 168 T/CUMM (130-400); Red Blood Count 4.12 MC/CUMM (3.8-5.5); Red Cell Distribution Width 12.9 % (9.3-17.3); White Blood Count 4.7 T/CUMM (4-12)
[2019-08-01] MEDS ORDERED: MAGNESIUM SULF RIDER 2 GM in PREMIX 1 EACH IV PRN (17:11)
[2019-08-01] MEDS ORDERED: MAGNESIUM SULF RIDER 4 GM in PREMIX 1 EACH IV PRN (17:11)
[2019-08-01 17:17] LABS: Alanine Aminotransferase 21 U/L (16-61); Albumin 3.1 G/DL (3.4-5.0); Alkaline Phosphatase 114 U/L (45-117); Aspartate Amino Transferase 21 U/L (0-37); Bilirubin,Total < 0.39 MG/DL (0.2-1.0); Blood Urea Nitrogen 35 MG/DL (7-18); Calcium 9.3 MG/DL (8.5-10.1); Estimated Glom Filtration Rate 71 ML/MIN; Glucose 195 MG/DL (74-106); Osmolality,Calculated 282.1 MOS/KG (273-304); Total Protein 7.7 G/DL (6.4-8.3)
[2019-08-01] MEDS ORDERED: SODIUM CHLORIDE 0.9% 500 ML IV STA (17:25)
[2019-08-01] MEDS ORDERED: ALBUTEROL/IPRATROPIUM 3 ML NEB RESP TX PRN (20:10)
[2019-08-01] MEDS: DONEPEZIL 10 MG TABLET PO SCH (21:24)
[2019-08-01] MEDS: MONTELUKAST 10 MG TABLET PO SCH (21:24)
[2019-08-01] MEDS: INSULIN GLARGINE 100 UNIT/ML SUBCUT SCH (21:24)
[2019-08-02] MEDS: ALBUTEROL 0.63 MG/3 ML NEB RESP TX SCH ×2 (07:40→19:24)
[2019-08-02] MEDS ORDERED: carvediloL 6.25 MG TABLET PO SCH (08:00)
[2019-08-02] MEDS ORDERED: DEXTROSE 10% 250 ML BAG IV PRN (09:22)
[2019-08-02] MEDS ORDERED: GLUCAGON 1 MG VIAL IM PRN (09:22)
[2019-08-02] MEDS ORDERED: AMIODARONE INJ 450 MG in DEXTROSE 5% 241 ML IV SCH (09:30)
[2019-08-02] MEDS: ASPIRIN EC 81 MG TABLET PO SCH (09:47)
[2019-08-02] MEDS: PANTOPRAZOLE 40 MG TABLET PO SCH ×2 (09:47→15:37)
[2019-08-02] MEDS: FERROUS SULFATE 325 MG TABLET PO SCH (09:48)
[2019-08-02] MEDS: MAGNESIUM OXIDE 400 MG TABLET PO SCH (09:48)
[2019-08-02] MEDS: DIGOXIN 0.125 MG TABLET PO SCH (09:48)
[2019-08-02] MEDS: MULTIVITAMIN (CENTRUM) TABLET PO SCH (09:48)
[2019-08-02] MEDS: FUROSEMIDE 40 MG TABLET PO SCH ×2 (09:48→21:30)
[2019-08-02] MEDS: POLYCARBOPHIL 625 MG TABLET PO SCH ×2 (09:48→21:29)
[2019-08-02] MEDS: MONTELUKAST 10 MG TABLET PO SCH ×2 (09:49→21:30)
[2019-08-02] MEDS: CYANOCOBALAMIN 500 MCG TABLET PO SCH (09:49)
[2019-08-02] MEDS: AMIODARONE INJ 450 MG in DEXTROSE 5% 241 ML IV SCH ×2 (10:34→18:54)
[2019-08-02] MEDS: INSULIN LISPRO 100 UNIT/ML SUBCUT SCH ×3 (12:18→21:30)
[2019-08-02] MEDS: carvediloL 12.5 MG TABLET PO SCH (16:48)
[2019-08-02] MEDS ORDERED: RIVAROXABAN 15 MG TABLET PO SCH (17:00)
[2019-08-02] MEDS ORDERED: ROSUVASTATIN 10 MG TABLET PO SCH (21:00)
[2019-08-02] MEDS ORDERED: AMIODARONE 200 MG TABLET PO SCH (21:30)
[2019-08-02] MEDS: DONEPEZIL 10 MG TABLET PO SCH (21:30)
[2019-08-02] MEDS: INSULIN GLARGINE 100 UNIT/ML SUBCUT SCH (21:31)
[2019-08-02] MEDS ORDERED: HALOPERIDOL 5 MG/ML AMP IM ONE (21:50)
[2019-08-02] MEDS ORDERED: diphenhydrAMINE CAP 25 MG CAPSULE PO ONE (21:53)
[2019-08-03 05:47] LABS: Calcium 8.8 MG/DL (8.5-10.1); Osmolality,Calculated 281.5 MOS/KG (273-304)
[2019-08-03] MEDS: ALBUTEROL 0.63 MG/3 ML NEB RESP TX SCH (07:55)
[2019-08-03 07:57] VITALS: BP 138/69
[2019-08-03] MEDS: INSULIN LISPRO 100 UNIT/ML SUBCUT SCH ×2 (07:57→11:42)
[2019-08-03] MEDS ORDERED: AMIODARONE 200 MG TABLET PO SCH (09:00)
[2019-08-03] MEDS: MONTELUKAST 10 MG TABLET PO SCH (09:02)
[2019-08-03] MEDS: FERROUS SULFATE 325 MG TABLET PO SCH (09:02)
[2019-08-03] MEDS: ASPIRIN EC 81 MG TABLET PO SCH (09:02)
[2019-08-03] MEDS: MAGNESIUM OXIDE 400 MG TABLET PO SCH (09:02)
[2019-08-03] MEDS: MULTIVITAMIN (CENTRUM) TABLET PO SCH (09:02)
[2019-08-03] MEDS: PANTOPRAZOLE 40 MG TABLET PO SCH (09:02)
[2019-08-03] MEDS: DIGOXIN 0.125 MG TABLET PO SCH (09:02)
[2019-08-03] MEDS: POLYCARBOPHIL 625 MG TABLET PO SCH (09:02)
[2019-08-03] MEDS: CYANOCOBALAMIN 500 MCG TABLET PO SCH (09:02)
[2019-08-03] MEDS: FUROSEMIDE 40 MG TABLET PO SCH (09:02)
[2019-08-03] MEDS: carvediloL 12.5 MG TABLET PO SCH (09:02)
== END 2019-08-03 11:59 | disposition home health service (06) | DRG 309 ==
LOC: N.ED 15:59 → N.EDINP 15:59 → N.TELES 18:45 → UNDODISIN 08-03 10:30
PROVIDERS: ADMIT Internal Medicine Clinical Cardiac Electrophysiology; ATTEND Internal Medicine Clinical Cardiac Electrophysiology

== ENCOUNTER 2021-10-26 09:41 | Observation (INO) ==
[2021-10-26] MEDS ORDERED: SODIUM CHLORIDE 0.9% 1,000 ML IV STA (10:06)
[2021-10-26 10:11] LABS: Basophils % 0.1 % (0.0-0.8); Hematocrit 47.7 VOL% (42.0-52.0); Hemoglobin 14.7 GM/DL (14.0-18.0); Immature Granulocytes % 0.5 %; Immature Granulocytes Absolute 0.07 #; Lymphocytes # 0.4 10*3/uL (1.4-4.0); Lymphocytes % 3.1 % (21.2-54.2); Mean Corpuscular HGB Conc 30.8 GM/DL (32-36); Mean Corpuscular Volume 95.2 FL (87-102); Monocytes # 0.7 10*3/uL (0.11-0.8); Monocytes % 5.4 % (1.7-12.7); Neutrophils % 90.9 % (38.7-73.9); Platelet Count 339 T/CUMM (130-400); Red Blood Count 5.01 MC/CUMM (3.8-5.5); Red Cell Distribution Width 14.2 % (9.3-17.3); White Blood Count 12.8 T/CUMM (4-12)
[2021-10-26 10:22] LABS: INR 1.1; PT Patient Result 12.3 SECS (10.5-12.0); Partial Thromboplastin Time 24.1 SECS (23.7-32.9)
[2021-10-26 10:31] LABS: Band Neutrophils 1 % (0-10); Lymphocytes 1 % (20-55); Total Cells Counted 100
[2021-10-26 10:32] LABS: Albumin 2.8 G/DL (3.4-5.0); Anisocytosis Slight; Bilirubin,Total 0.4 MG/DL (0.20-1.00); Burr Cells Few; Calcium 10.8 MG/DL (8.5-10.1); Macrocytosis 1+; Osmolality,Calculated 326.1 MOS/KG (273-304); Potassium 4.9 MMOL/L (3.5-5.1); Total Protein 8.9 G/DL (6.4-8.2)
[2021-10-26 11:16] LABS: Amorphous Crystals,Urine Few /HPF (Few); Hyaline Casts,Urine 5 /LPF (0-3); Mucus,Urine Occasional /LPF (Occasional); Squamous Epithelial Cell,Urine Occasional /HPF (0-10); Urine Color Yellow (Yellow)
[2021-10-26 11:17] LABS: Bilirubin,Urine Negative (Negative); Blood, Urine Trace mg/dL (Negative); Glucose,Urine (UA) Negative (Negative); Ketones,Urine Negative (Negative); Nitrite,Urine Negative (Negative); Protein,Urine Negative (Negative); Urine Appearance Clear (Clear); Urine Urobilinogen 0.2 eU/dL (<2.0)
[2021-10-26 11:23] LABS: Barbiturates Screen,Urine Negative (Negative); Benzodiazepines Screen,Urine Negative (Negative); Cannabinoid Screen,Urine Negative (Negative); Opiate Screen,Urine Negative (Negative); Phencyclidine Screen,Urine Negative (Negative)
[2021-10-26] MEDS ORDERED: LORazepam 1 MG TABLET PO PRN (11:59)
[2021-10-26] MEDS: MORPHINE 2 MG/1 ML SYRINGE IV PRN (19:38)
[2021-10-27] MEDS: MORPHINE 2 MG/1 ML SYRINGE IV PRN (04:52)
[2021-10-27 08:05] VITALS: BP 110/59
== END 2021-10-27 13:36 | disposition hospice, home (50) ==
LOC: N.ED 09:41 → N.EDINP 09:41 → N.TELES 14:53
PROVIDERS: ADMIT Internal Medicine; ATTEND Internal Medicine